=== PATIENT | female | born 1980 | race African-American/Black ===

== ENCOUNTER 2024-05-26 04:19 | Observation (INO) | payer OTHER, SELFPAY ==
[2024-05-25 22:21] VITALS: BP 200/115
[2024-05-25 22:43] LABS: Hematocrit 41.9 % (37.0-47.0); Hemoglobin 14.7 g/dL (12.0-16.0); Mean Corp Hgb Conc. 35.1 g/dL (33.0-37.0); Mean Corpuscular Hgb 32.7 pg (27.0-31.0); Mean Corpuscular Volume 93.3 fL (81.0-99.0); Mean Platelet Volume 8.6 fL (7.4-10.4); Platelet Count 352 10^3/uL (130-400); Red Blood Cell Count 4.49 10^6/uL (4.20-5.40); Red Cell Dist. Width 11.9 % (11.5-14.5); White Blood Cell Count 7.3 10^3/uL (4.8-10.8)
[2024-05-25 22:47] LABS: HCG, Serum Qualitative Screen Negative
[2024-05-25 22:52] LABS: ALT (SGPT) 19 U/L (0-35); AST (SGOT) 22 U/L (14-36); Alkaline Phosphatase 90 U/L (38-126); Blood Urea Nitrogen 8 mg/dl (7-17); Calcium 10.3 mg/dl (8.4-10.2); Carbon Dioxide 29 mmol/L (22-30); Chloride 101 mmol/L (98-107); Glucose 108 mg/dl (70-99); Sodium 137 mmol/L (135-145); Total Bilirubin 0.4 mg/dl (0.2-1.3); Total Protein 7.4 g/dl (6.3-8.2); eGFR > 60.00
[2024-05-25 22:57] LABS: % Basophils 0.5 % (0-2); % Eosinophils 0.7 % (0-6); % Immature Granulocytes 0.3 % (0-0.5); % Lymphocytes 50.6 % (20.5-51.1); % Monocytes 7.4 % (1.7-9.3); % Neutrophils 40.5 % (42.2-75.2); Absolute Eosinophils 0.1 10^3/uL (0-0.7); Absolute Lymphocytes 3.7 10^3/uL (1.2-3.4); Absolute Monocytes 0.5 10^3/uL (0.1-0.6); Nucleated Red Blood Cells % 0 %
[2024-05-26] VITALS (14 sets, daily range): BP systolic 115–207; BP diastolic 74–126; PULSE 84–93; O2SAT 98; BMI 48.8
--- NOTE | 2024-05-26 01:48 | ED.GENMED ---
History of Present Illness
<BISI Dewitt - Last Filed: 05/26/24 19:25>
General
Chief Complaint: Headache
Source: patient
Exam Limitations: none
Time Seen by Provider: 05/26/24 01:14
Nursing documentation reviewed up to this point in time: agreed with
History of Present Illness
History of Present Illness:
Patient is a 44 old female with past medical history of hypertension presents to the ER for evaluation. Patient reports on 4 days ago she started with fatigue and headache. She describes this headache as a migraine though she does not
typically get headaches. On Saturday symptoms worsened and now she persistently has headache fatigue and also reports room spinning sensation when she sits up. She had no choice but to drive her self to the hospital. She took ibuprofen this
morning which did not relieve her symptoms. She does have photosensitivity and light sensitivity. She denies any neck pain fever chills. She did a COVID test at home that was negative
Past History
<BISI Dewitt - Last Filed: 05/26/24 19:25>
Past History
ED Past Medical History: HTN
ED Past Surgical History: None
Social History
Tobacco: Non-smoker
Living: with family
Employment: Employed
Review of Systems
<BISI Dewitt - Last Filed: 05/26/24 19:25>
Review of Systems
Allergies reviewed?: Yes
All Other Systems: ROS reviewed and negative except as documented in HPI and ROS
Constitutional: Reports fatigue; Denies fever or chills
EENT: Reports no symptoms
Respiratory: Reports no symptoms
ABD/GI: Reports nausea; Denies abdominal pain or vomiting
: Reports no symptoms
Musculoskeletal: Denies neck pain or back pain
Skin: Reports no symptoms
Neurological: Reports dizzy (room spinning sensation ) and headache
Psychiatric: Reports no symptoms
Phy Exam
<BISI Dewitt - Last Filed: 05/26/24 19:25>
General Physical Exam
General Presentation: no apparent distress
General age: appears stated age
General Skin: warm and dry
ENT Exam
ENT Exam: EOMI and neck supple
Eye Exam
Eye Exam: PERRL, EOMI and other (No nystagmus b/l )
Eye Exam General: PERRL: bilateral and EOM intact: bilateral
Pupil Exam: Bilateral: round and reactive
Cardiovascular Exam
Cardiovascular Exam: regular rate/rhythm, no murmur and normal peripheral pulses
Pulmonary Exam
Pulmonary Exam: lungs clear and no respiratory distress
Neurological Exam
Neurological Exam: alert, oriented x3, no motor deficits and no sensory deficits
Musculoskeletal Exam
Musculoskeletal Exam: full ROM
Skin Exam
Skin Exam: normal color and warm/dry
Psychiatric Exam
Psychiatric Exam: normal mood/affect
Course
<BISI Dewitt - Last Filed: 05/26/24 19:25>
Orders/Labs/Results
Orders:
Orders
05/25/24 22:25
Test Result ONCE
05/25/24 22:31
CMP [Comprehensive Metabolic Panel] Urgent
Complete Blood Count/With Diff Urgent
HCG, Serum Qualitative Screen Urgent
05/26/24 01:46
CT Head W/o Iv Contrast Urgent
Comment:
Reason For Exam: headache vertigo
05/26/24 01:47
Acetaminophen 1000MG/100Ml [Ofirmev] 1,000 mg in 100 ml IV ONCE
Acetaminophen IV Indication:: ED Narcotic Naive Pt-ONCE
Meclizine [Antivert] 25 mg PO NOW STA
05/26/24 01:48
0.9% Sodium Chloride 1000 ml [Nss] 1,000 ml IV BOLUS
Ondansetron Injectable [Zofran] 4 mg IV NOW STA
05/26/24 02:29
Ketorolac [Toradol] 15 mg IV NOW STA
05/26/24 04:04
Admit/Transfer Patient As Directed
Co-Sign Provider:
Level of Care: Observation services
Assign to:: Telemetry
Physician / Group: Jae
Diagnosis: Headache / Vertigo
Reason for Telemetry: CVA/TIA
Date to Stop Telemetry: 05/29/24
Time to Stop Telemetry: 11:00
Code Status As Directed
Resuscitation Status: Full Code
PRN Pain Medication Management As Directed
May give lesser potent ordered pain med per pt: Yes
preference::
Protocol:: Medication orders for pain may be administered in a
manner that supports deferring to patient preference
when the pt is:
- Requesting an ordered lesser potent pain medication.
Least to most potent pain medications are defined
as: acetaminophen < NSAID < tramadol < opioids
(morphine, oxycodone, hydromorphone).
- Requesting a lesser dose of the same medication IF
ORDERED.
- Requesting a less intrusive route of administration
if both routes are prescribed by the provider (PO <
IV).
05/26/24 05:28
Acetaminophen [Tylenol] 650 mg PO Q4HPRN PRN
HydrALAZINE [Apresoline] 10 mg IV Q6HPRN PRN
Ketorolac [Toradol] 10 mg IV Q6HPRN PRN
Meclizine [Antivert] 25 mg PO Q8HPRN PRN
Metoclopramide [Reglan] 10 mg IV Q6HPRN PRN
05/26/24 05:28
Activity As Directed
Activity Level: Ambulate
With Assistance
EKG with chest pain [ECG as needed] As Directed
ECG as needed for:: Chest Pain
I/O [Intake/ Output] As Directed
Frequency: Per unit guidelines
Neurological Checks As Directed
Frequency: q4h
Orthostatic Vital Signs As Directed
Orthostatic VS Frequency: BID
Pneumatic Compression Sleeves As Directed
Type: Knee high
Vital Signs As Directed
Frequency: Per unit guidelines
Oxygen Therapy [O2 Therapy] [RESP] Routine
Titrate/Wean O2 to maintain O2 sat greater than (%): 94
Ot Eval And Treat Routine
PT Consult [Pt Eval And Treat] Routine
Activity Level: Ambulate
With Assistance
DX Deep Vein Thrombosis Video Routine
05/26/24 Breakfast
Regular
At Your Request: Full Participation
Does patient need a safe tray?: No
MR Brain Without Contrast IN AM
Comment:
Reason For Exam: CVA / TIA
Recent pill cam endoscopy?: No
05/26/24 06:46
Basic Metabolic Panel IN AM
Cardiovascular Evaluation IN AM
Complete Blood Count/No Diff IN AM
Glycohemoglobin (HgbA1c) Routine
TSH Reflex To Free T4 Routine
05/26/24 08:00
Aspirin Chewable [Low Strength Aspirin] 81 mg PO DAILY
Hydrochlorothiazide [Oretic] 25 mg PO DAILY
Pantoprazole [Protonix] 40 mg PO DAILY
05/26/24 18:00
Enoxaparin Sodium [Lovenox] 40 mg SC QPM
05/29/24 11:00
DC Protocol for Telemetry ONCE
Abnormal Lab Results
05/25/24
22:31
MCH 32.7 H pg
(27.0-31.0)
Absolute Lymphs (auto) 3.7 H 10^3/uL
(1.2-3.4)
Neutrophils % 40.5 L %
(42.2-75.2)
Glucose 108 H mg/dl
(70-99)
Calcium 10.3 H mg/dl
(8.4-10.2)
Albumin 3.0 L g/dl
(3.5-5.0)
05/25/24 22:31
05/25/24 22:31
Vital Signs
Initial and Last Documented VS:
Initial Vital Signs
Temp Pulse Resp BP Pulse Ox
97.6 F 90 24 200/115 100
05/25/24 22:21 05/25/24 22:21 05/25/24 22:21 05/25/24 22:21 05/25/24 22:21
Last Documented Vital Signs
Temp Pulse Resp BP Pulse Ox
98.7 F 89 18 148/84 99
05/26/24 15:19 05/26/24 15:19 05/26/24 15:19 05/26/24 15:19 05/26/24 15:19
Drill Punch Operator consulted with Physician
Drill Punch Operator consulted with physician?: Yes
Name of Physician Consulted: Diana
<Hua Ortiz, DO - Last Filed: 05/26/24 03:13>
Orders/Labs/Results
Orders:
Orders
05/25/24 22:25
Test Result ONCE
05/25/24 22:31
CMP [Comprehensive Metabolic Panel] Urgent
Complete Blood Count/With Diff Urgent
HCG, Serum Qualitative Screen Urgent
05/26/24 01:46
CT Head W/o Iv Contrast Urgent
Comment:
Reason For Exam: headache vertigo
05/26/24 01:47
Acetaminophen 1000MG/100Ml [Ofirmev] 1,000 mg in 100 ml IV ONCE
Acetaminophen IV Indication:: ED Narcotic Naive Pt-ONCE
Meclizine [Antivert] 25 mg PO NOW STA
05/26/24 01:48
0.9% Sodium Chloride 1000 ml [Nss] 1,000 ml IV BOLUS
Ondansetron Injectable [Zofran] 4 mg IV NOW STA
05/26/24 02:29
Ketorolac [Toradol] 15 mg IV NOW STA
05/26/24 04:04
Admit/Transfer Patient As Directed
Co-Sign Provider:
Level of Care: Observation services
Assign to:: Telemetry
Physician / Group: Jae
Diagnosis: Headache / Vertigo
Reason for Telemetry: CVA/TIA
Date to Stop Telemetry: 05/29/24
Time to Stop Telemetry: 11:00
Code Status As Directed
Resuscitation Status: Full Code
PRN Pain Medication Management As Directed
May give lesser potent ordered pain med per pt: Yes
preference::
Protocol:: Medication orders for pain may be administered in a
manner that supports deferring to patient preference
when the pt is:
- Requesting an ordered lesser potent pain medication.
Least to most potent pain medications are defined
as: acetaminophen < NSAID < tramadol < opioids
(morphine, oxycodone, hydromorphone).
- Requesting a lesser dose of the same medication IF
ORDERED.
- Requesting a less intrusive route of administration
if both routes are prescribed by the provider (PO <
IV).
05/26/24 05:28
Acetaminophen [Tylenol] 650 mg PO Q4HPRN PRN
HydrALAZINE [Apresoline] 10 mg IV Q6HPRN PRN
Ketorolac [Toradol] 10 mg IV Q6HPRN PRN
Meclizine [Antivert] 25 mg PO Q8HPRN PRN
Metoclopramide [Reglan] 10 mg IV Q6HPRN PRN
05/26/24 05:28
Activity As Directed
Activity Level: Ambulate
With Assistance
EKG with chest pain [ECG as needed] As Directed
ECG as needed for:: Chest Pain
I/O [Intake/ Output] As Directed
Frequency: Per unit guidelines
Neurological Checks As Directed
Frequency: q4h
Orthostatic Vital Signs As Directed
Orthostatic VS Frequency: BID
Pneumatic Compression Sleeves As Directed
Type: Knee high
Vital Signs As Directed
Frequency: Per unit guidelines
Oxygen Therapy [O2 Therapy] [RESP] Routine
Titrate/Wean O2 to maintain O2 sat greater than (%): 94
Ot Eval And Treat Routine
PT Consult [Pt Eval And Treat] Routine
Activity Level: Ambulate
With Assistance
DX Deep Vein Thrombosis Video Routine
05/26/24 Breakfast
Regular
At Your Request: Full Participation
Does patient need a safe tray?: No
MR Brain Without Contrast IN AM
Comment:
Reason For Exam: CVA / TIA
Recent pill cam endoscopy?: No
05/26/24 06:46
Basic Metabolic Panel IN AM
Cardiovascular Evaluation IN AM
Complete Blood Count/No Diff IN AM
Glycohemoglobin (HgbA1c) Routine
TSH Reflex To Free T4 Routine
05/26/24 08:00
Aspirin Chewable [Low Strength Aspirin] 81 mg PO DAILY
Hydrochlorothiazide [Oretic] 25 mg PO DAILY
Pantoprazole [Protonix] 40 mg PO DAILY
05/26/24 18:00
Enoxaparin Sodium [Lovenox] 40 mg SC QPM
05/29/24 11:00
DC Protocol for Telemetry ONCE
Abnormal Lab Results
05/25/24
22:31
MCH 32.7 H pg
(27.0-31.0)
Absolute Lymphs (auto) 3.7 H 10^3/uL
(1.2-3.4)
Neutrophils % 40.5 L %
(42.2-75.2)
Glucose 108 H mg/dl
(70-99)
Calcium 10.3 H mg/dl
(8.4-10.2)
Albumin 3.0 L g/dl
(3.5-5.0)
05/25/24 22:31
05/25/24 22:31
Vital Signs
Initial and Last Documented VS:
Initial Vital Signs
Temp Pulse Resp BP Pulse Ox
97.6 F 90 24 200/115 100
05/25/24 22:21 05/25/24 22:21 05/25/24 22:21 05/25/24 22:21 05/25/24 22:21
Last Documented Vital Signs
Temp Pulse Resp BP Pulse Ox
98.7 F 89 18 148/84 99
05/26/24 15:19 05/26/24 15:19 05/26/24 15:19 05/26/24 15:19 05/26/24 15:19
<BISI Dewitt - Last Filed: 05/26/24 19:25>
MDM/Problems Addressed
Differential Diagnosis Includes:
not limited to: headache , hypertension, migraine, vertigo intracranial hemorrhage
MDM/Problems Addressed:
Patient is a 44-year-old female with history of hypertension presents to the ER for evaluation. She reports on 4 days ago she started with fatigue and headaches. She does describe intermittent vertigo. She denies any fever or chills.
She does report she takes hydrochlorothiazide around 12.5 mg every day. She was on another blood pressure medication however that made her hair fall out and she was allowed to stop it. She presents awake alert. She denies any fever chills. She
did a COVID test at home which was negative. She is little nauseous. She is photosensitive. She did drive her self here to the hospital. In order to improve her symptoms and not sedate her patient was given Ofirmev IV with fluids and meclizine.
CAT scan ordered will plan for Toradol . Labs unremarkable pt will likely need additional BP med for d/c . Care of pt at this time transferred to DR Ortiz.
<BISI Dewitt - Last Filed: 05/26/24 19:25>
*Critical Care Note
Total Time (30-74mins, 75-104mins- exclusive of procedures): Not Applicable
ED Attending Note
<BISI Dewitt - Last Filed: 05/26/24 19:25>
-
Portions of this chart may have been created with voice recognition software.� Occasional wrong word or��sound alike� substitutions may have occurred due to the inherent limitations of voice recognition software.
<Hua Ortiz DO - Last Filed: 05/26/24 03:13>
ED Attending Note
Patient seen and examined by attending physician: Yes
I performed the substantive portion of visit, reviewed & personally made and approve the management plan that is documented in note by myself or LAMBERTO.: Yes
I performed a history and physical exam of patient and discussed management with resident, I reviewed resident's note and agree with documented findings and plan of care.: Yes
ED Attending Note:
I evaluated the patient at bedside. CT suggest subtle lacunar infarct versus artifact. On reassessment at 3 AM, the patient still does not really feel all that well still with headache and some vertiginous symptoms.
Discharge Plan
Departure
Patient Disposition: Admit
Date of Disposition: 05/26/24
Time of Disposition: 03:10
Presentation/result/management discussed w/ accepting MD/DO: Hospitalist
Discharge Problem:
Headache
Interventions
Interventions:
*Risk Screen - Suicide Last Done: 05/25/24 22:21
*General Assessment Last Done: 05/26/24 00:50
*Neglect/Abuse Screening Last Done: 05/25/24 22:21
ED- Fall Risk Assessment Last Done: 05/26/24 00:50
*ED COVID-19 Vaccine History Last Done: 05/26/24 00:50
*Nursing Disposition Last Done: 05/26/24 05:25
ED- Neurological Assessment Last Done: 05/26/24 00:50
Discharge Date and Time
Discharge Date/Time: 05/26/24 05:25
[2024-05-26] MEDS: ZOFRAN 4 MG IV (01:54)
[2024-05-26] MEDS: ANTIVERT 25 MG PO (01:54)
[2024-05-26] MEDS: OFIRMEV 100 IV (02:06)
[2024-05-26] MEDS: NSS 1000 IV (02:27)
[2024-05-26] MEDS: TORADOL 15 MG IV (02:31)
--- NOTE | 2024-05-26 04:09 | HPS.HSE ---
Family Physician
-
Family Physician: Samy Meade MD
Chief Complaint
-
Headache, Dizziness, Nausea
History of Present Illness
Patient is a 44y F with PMH significant for hypertension and obesity s/p gastric bypass who presents to ED complaining of headache, dizziness and nausea. Patient states that her symptoms began on with a sense of fatigue. She had runny
nose and felt that she might be getting a cold. She took a COVID test at home which was negative.
On Saturday, she developed frontal headache, dizziness and nausea. She has not had any emesis. Patient describes her symptoms as a 'migraine'; though, she states that she has no personal history of migraines or other chronic headaches. She denies
any prior history of similar symptoms. Patient describes room spinning sensation that is worse with sitting upright or standing. She has had a decreased appetite as a result of the nausea.
Patient denies any recent travel, known sick contacts, etc.
Medical History
Past Medical History
Past Medical History: Reports Other
Additional Past Medical History:
Hypertension
Chronic Lymphedema
Morbid Obesity
Past Surgical History: Reports Other
Additional Past Surgical History:
Gastric Bypass
Social History
Tobacco: Non-smoker
Alcohol: Occasional
Drug: None
Family History
Family History: Other (Father: DM Mother: MS)
Allergies / Home Medications
Allergies reflects when Allergies were last updated in [employer].
Home Medications with original date entered in [employer]
Allergy/Medication List:
Allergies
Allergy/AdvReac Type Severity Reaction Status Date / Time
No Known Allergies Allergy Verified 05/25/24 22:24
Home Medications
HCTZ 12.5mg daily
Omeprazole
Vitamins
Patient is not certain of her medication doses.
Review of Systems
-
History Source: Patient
A 12 point ROS was completed and negative except as noted: Yes
Constitutional: Reports Fatigue; Denies Fever or Chills
EENT: Denies Sore Throat
Respiratory: Denies Cough or Trouble Breathing
Cardiac: Denies Chest Pain or Palpitations
Abdomen/GI: Reports Nausea and Anorexia; Denies Abdominal Pain, Vomiting or Diarrhea
: Denies Dysuria, Frequency or Flank Pain
Musculoskeletal: Denies Joint Pain or Edema
Neurological: Reports Dizzy and Headache; Denies Weakness or Numbness
Psych: Denies Depression or Anxiety
Physical Exam
Vital Signs
Vital Signs
Temp Pulse Resp BP Pulse Ox
97.6 F 90 24 165/88 100
05/25/24 22:21 05/25/24 22:21 05/25/24 22:21 05/26/24 02:37 05/26/24 02:37
Physical Exam
General: Other (44y F in mild distress due to headache.)
HEENT: Moist mucous membranes, PERRLA and Other (No nystagmus.)
Respiratory: Clear; No Wheezes, Rales or Rhonchi
Cardiac: S1/S2 and Regular Rhythm; No Murmur
GI: Soft, Non Tender, Non Distended and Normal Bowel Sounds
Musculoskeletal: No Clubbing, No Cyanosis and Other (No significant lymphedema apprecated.)
Neuro: AO x 3 and Nonfocal/grossly intact
Laboratory Results
-
05/25/24 22:31
05/25/24 22:31
Laboratory Results
Total Bilirubin 0.4 mg/dl (0.2-1.3) 05/25/24 22:31
AST 22 U/L (14-36) 05/25/24 22:31
ALT 19 U/L (0-35) 05/25/24 22:31
Alkaline Phosphatase 90 U/L (38-126) 05/25/24 22:31
Impression/Plan
-
A/P: Patient is a 44y F with PMH significant for obesity s/p gastric bypass, HTN and GERD who presents to ED complaining of headache, dizziness, and nausea.
Headache
Dizziness
Nausea
- Observe overnight for further evaluation and treatment.
- ? vertigo / BPPV versus new onset migraine versus other.
- Continue supportive care / efforts at symptom control.
- PT / Vestibular evaluation in the AM.
- CT scan done in the ED shows possible abnormality in the R internal capsule.
- Suspect this is artifact - check MRI brain for further evaluation.
- Follow for clinical improvement.
Benign Hypertension
- BP elevated on arrival - likely in large part due to headache / uncontrolled pain.
- Continue home HCTZ for now.
- Adjust med regimen as needed for improved BP control.
- IV hydralazine PRN very high BPs.
GERD
- Stable. Continue daily PPI.
Chronic Lymphedema
- Patient reports chronic LE lymphedema.
- No evident trigger / underlying etiology.
- She has a lymphedema pump at home that she uses.
- No significant edema appreciated for me on exam.
- SCDs while in the hospital.
Morbid Obesity s/p Gastric Bypass
- Affects all aspects of care.
- Encourage healthy diet and increased activity with goal of weight loss.
- Continue usual vitamin / supplement regimen (patient not sure of all names / doses) once confirmed.
DVT Prophylaxis: Lovenox
Code Status: Full
[2024-05-26] MEDS: REGLAN 10 MG IV ×3 (06:09→20:03)
--- NOTE | 2024-05-26 06:20 | PTCARENOTE ---
Received patient from ED via stretcher. Patient ambulated from stretcher to bed independently. AAOx3, reports 03/23 HERNANDEZ. NIH 0. Patient states she has dizziness when OOB. Oriented patient to room and placed call smith within reach.
[2024-05-26 06:57] LABS: Hematocrit 37.4 % (37.0-47.0); Hemoglobin 13.2 g/dL (12.0-16.0); Mean Corp Hgb Conc. 35.3 g/dL (33.0-37.0); Mean Corpuscular Hgb 33.6 pg (27.0-31.0); Mean Corpuscular Volume 95.2 fL (81.0-99.0); Mean Platelet Volume 8.7 fL (7.4-10.4); Platelet Count 317 10^3/uL (130-400); Red Blood Cell Count 3.93 10^6/uL (4.20-5.40); Red Cell Dist. Width 11.9 % (11.5-14.5); White Blood Cell Count 5.2 10^3/uL (4.8-10.8)
[2024-05-26 07:42] LABS: Blood Urea Nitrogen 8 mg/dl (7-17); Calcium 9.3 mg/dl (8.4-10.2); Carbon Dioxide 29 mmol/L (22-30); Chloride 101 mmol/L (98-107); Estimated Creatinine Clearance > 125 ml/min; Glucose 103 mg/dl (70-99); Potassium 3.8 mmol/L (3.5-5.1); Sodium 135 mmol/L (135-145); Total Cholesterol 195 mg/dl (50-199); Triglyceride 52 mg/dl (10-149); Very Low Density Lipoprotein 10 mg/dl (0-30); eGFR > 60.00
[2024-05-26 07:53] LABS: HDL Cholesterol 131 mg/dl; LDL Cholesterol, Calculated 54 mg/dl
[2024-05-26] MEDS: LOW STRENGTH ASPIRIN 81 MG PO (07:54)
[2024-05-26] MEDS: ORETIC 25 MG PO (07:54)
[2024-05-26] MEDS: PROTONIX 40 MG PO (07:54)
[2024-05-26 08:10] LABS: TSH Reflex To Free T4 4.26 uIU/ml (0.47-4.68)
[2024-05-26 09:30] LABS: Glycohemoglobin (HgbA1c) 5.3 % (4.0-5.6)
[2024-05-26] MEDS: TORADOL 10 MG IV ×2 (10:00→18:09)
--- NOTE | 2024-05-26 14:34 | CM ---
Consult received for Advance Directive.
CM met with Jean Claude to review AD paperwork and the purpose of the document. She will look at it more closely and complete the form with her wishes for medical care in the event she cannot speak for herself.
Jeanne lives with her son in an apartment with 6 entry steps. Her son is going to be moving to his own apartment, as he is starting college.
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 She anticipates returning home at discharge and reports no needs.
Plan: Discharge to home with no needs.
PCP: Samy Meade
Pharmacy: [facility]
[2024-05-26] MEDS: LOVENOX 40 MG SC (18:06)
--- NOTE | 2024-05-26 18:20 | W.PN.HOSP.TC ---
Today's Communication/Plan
-
See plan
Assessment / Plan
Assessment / Plan
Impression:
Patient is a 44y F with PMH significant for obesity s/p gastric bypass, HTN and GERD who presents to ED complaining of headache, dizziness, and nausea.
Headache, dizziness, nausea on presentation.
Benign hypertension.
Sinus tachycardia, asymptomatic.
GERD.
Chronic lower extremity lymphedema.
Morbid obesity status post gastric bypass
Plan:
Headache and vertigo resolved
Exam with no focal findings
CT scan in ED shows likely artifact of the right internal capsule.
MRI of the brain with no acute abnormalities, possibly consistent with chronic ischemic disease less likely demyelinating process.
Benign hypertension.
Blood pressure is stable on HCTZ.
Persistent, asymptomatic sinus tachycardia with heart rate up to 150 with minimal exertion.
Denies any chest pain.
ECG with no ischemia
Echocardiogram with preserved biventricular function LVEF of 65 to 70%, no LVH, mild TR, PA pressure 35 mmHg.
Lower extremity Doppler negative for DVT.
D-dimer pending
Monitor overnight with increased activity.
Consider further evaluation with CT PE protocol.
Consider addition of beta-valencia
Anticipated Discharge: 24 - 48 hours
Subjective/Interval History
-
Date of Service: May 26, 2024
Objective Data
-
Labs:
Laboratory Results
05/26/24
06:46
WBC 5.2
Hgb 13.2
Hct 37.4
Plt Count 317
Sodium 135
Potassium 3.8
Chloride 101
Carbon Dioxide 29
BUN 8
Creatinine 0.7
Glucose 103 H
Calcium 9.3
Vital Signs:
Vital Signs
Temp Pulse Resp BP Pulse Ox
98.7 F 89 18 148/84 99
05/26/24 15:19 05/26/24 15:19 05/26/24 15:19 05/26/24 15:19 05/26/24 15:19
I&O
05/25/24 05/26/24 05/27/24
06:59 06:59 06:59
Intake Total 480 / 480
Output Total 86.09 / 86.09
Balance 393.91 / 393.91
Physical Exam
-
General: Well Developed and No Apparent Distress
HEENT: Normocephalic, Atraumatic and Moist Mucous Membranes
Respiratory: Clear to Auscultation
Cardiac: Regular Rhythm and S1/S2; Negative Murmur, Rub or Gallop
GI: Soft, Nontender, Nondistended and Normal Bowel Sounds; Negative Organomegaly
Rectal: Deferred by Provider
Musculoskeletal: No Clubbing, No Cyanosis and No Edema
Skin: Negative Rash
Neuro: Nonfocal/Grossly Intact
[2024-05-26 19:49] LABS: D-Dimer 0.38 ug/mlFEU (0.00-0.50)
[2024-05-27 03:25] VITALS: BP 131/77
[2024-05-27 07:49] VITALS: BP 156/106
[2024-05-27] MEDS: REGLAN 10 MG IV (08:22)
[2024-05-27] MEDS: FLUSH (NSS) 1 FLUSH IV (08:22)
[2024-05-27] MEDS: LOW STRENGTH ASPIRIN 81 MG PO (08:22)
[2024-05-27] MEDS: ORETIC 25 MG PO (08:22)
[2024-05-27] MEDS: PROTONIX 40 MG PO (08:22)
[2024-05-27 09:42] VITALS: BP 145/80
[2024-05-27 11:58] VITALS: BP 149/90
--- NOTE | 2024-05-27 12:10 | W.DS.TRANS ---
DC Summary - Histology Assistant
-
Discharge Instructions:
Discharge Diagnosis/Procedures Headache, dizziness, nausea on presentation.
Benign hypertension.
Sinus tachycardia, asymptomatic.
GERD.
Chronic lower extremity lymphedema.
Morbid obesity status post gastric bypass
Diet Regular
Instructions:
Stand-Alone Forms:
Changes to Home Medications: No
Discharge Medications:
DC Medications w/original date entered in [employer]
erythromycin 5 mg/gram (0.5 %) eye ointment 1 applic OPHTHALMIC QID Eye Condition 05/27/24
hydrochlorothiazide 25 mg tablet 25 mg PO DAILY #30 tabs 05/27/24
hydrocortisone 1 % topical cream 14 gm topical BID Skin Issues 05/27/24
Home Medication Changes
Pending Results: No
--- NOTE | 2024-05-27 13:07 | CM ---
Jean Claude is being discharged to home today with no needs. She plans to complete her advance directive when she returns home and will discuss her wishes with her son.
Plan: Discharge to home with no needs.
PCP: Samy Meade
Pharmacy: [facility]
== END 2024-05-27 13:15 | disposition home or self-care (01) ==
LOC: 4 EAST ACU 04:19
PROVIDERS: Emergency Medicine; ADMITTING PHYSICIAN Hospitalist; ATTENDING PHYSICIAN Internal Medicine; EMERGENCY PHYSICIAN Emergency Medicine; FAMILY PHYSICIAN Family Medicine
DX: R51.9 Headache, unspecified (principal); R42 Dizziness and giddiness; R11.0 Nausea; I10 Essential (primary) hypertension; R53.83 Other fatigue; R07.9 Chest pain, unspecified; E66.01 Morbid (severe) obesity due to excess calories; I89.0 Lymphedema, not elsewhere classified; K21.9 Gastro-esophageal reflux disease without esophagitis; R60.0 Localized edema; R00.0 Tachycardia, unspecified; Z68.42 Body mass index [BMI] 45.0-49.9, adult; Z83.3 Family history of diabetes mellitus; Z82.0 Family history of epilepsy and other diseases of the nervous system; Z98.84 Bariatric surgery status
CPT/HCPCS: 70450; 70551; 80048; 80053; 80061; 83036; 84443; 84703; 85025; 85027; 85379; 93005; 93306; 93970; 96361; 96374; 96375; 97162; 97166; 99285; G0378